=== PATIENT | female | born 1965 | race African-American/Black ===

== ENCOUNTER 2017-11-07 06:55 | Day surgery (SDC) | payer OTHER ==
[2017-10-20 15:39] VITALS: BMI 36.0
[2017-11-07] MEDS ORDERED: DEXAMETHASONE SOD PHOSPHATE/PF 10 MG/ML SDV ONE (09:51)
[2017-11-07] MEDS ORDERED: MIDAZOLAM HCL 2 MG/2 ML SINGLE DOSE VIAL ONE (09:52)
[2017-11-07] MEDS ORDERED: ROPIVACAINE HCL 0.5% 30ML VIAL ONE (09:52)
--- NOTE | 2017-11-07 09:59 | HP ---
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 Since the injury she has tried physical therapy and an injection into the joint. She has pain mostly over the front of her shoulder with movement, reaching behind her back and elevating her arm. To relieve her pain she takes oxycodone daily. No numbness or tingling. Since seeing her PMD for clearance she has been feeling ok. No CP/SOB or fevers. History Source: Patient Limitations to Obtaining History: No Limitations - Past Medical History SEXUAL HEALTH PHYSICIAN: No: TIA Cardiovascular: Yes: Deep Vein Thrombosis (? of a clot(2 years ago) to right upper thigh after trauma, was treated with two weeks of AC), HTN Gastrointestinal: No: Constipation, Gastritis, GERD Hepatobiliary: No: Hepatitis B Renal/: No: Renal Failure, Hematuria ...LMP Comment: 6 months ago - Past Surgical History Past Surgical History: Yes: Cholecystectomy Additional Past Surgical History: bunionectomy b/l - Smoking History Smoking history: Former smoker Have you smoked in the past 12 months: No If you are a former smoker, when did you quit?: 15 y ago - Alcohol/Substance Use Hx Alcohol Use: Yes (social) Home Medications - Allergies Allergies/Adverse Reactions: Allergies Allergy/AdvReac Type Severity Reaction Status Date / Time latex Allergy Rash Verified 10/20/17 15:43 codeine AdvReac Itching Verified 10/20/17 15:43 - Home Medications Home Medications: Ambulatory Orders Cyclobenzaprine HCl [Flexeril 10 mg] 10 mg PO DAILY 10/20/17 Diphenhydramine HCl [Benadryl -] 25 mg PO DAILY 10/20/17 Hydrocodone/Acetaminophen [Hydrocodone-Acetamin 7.5-300] 1 each PO DAILY Review of Systems - Review of Systems Constitutional: denies: Chills, Fever Neck: denies: Decreased ROM, Pain on Movement Cardiovascular: denies: Chest Pain, Edema, Palpitations Respiratory: denies: Cough, SOB Gastrointestinal: denies: Abdominal Pain, Constipation Genitourinary: denies: Burning, Dysuria Musculoskeletal: reports: Back Pain (and sciatica to both LE b/l(intermittent) occasional tingling to LE), Decreased ROM (to the left shoulder as per HPI), Extremity Pain (left shoulder pain) Neurological: reports: Weakness (left arm). denies: Seizure Hematology/Lymphatic: denies: Easily Bruised, Excessive Bleeding Physical Examination Vital Signs: Vital Signs Temperature 98.1 F 11/07/17 07:27 Pulse Rate 84 11/07/17 07:27 Respiratory Rate 18 11/07/17 07:27 Blood Pressure 120/80 11/07/17 07:27 O2 Sat by Pulse Oximetry (%) 100 11/07/17 07:27 Constitutional: Yes: Well Nourished, Calm HENT: Yes: WNL, Atraumatic, Normocephalic Neck: Yes: WNL, Supple, Trachea Midline Cardiovascular: Yes: WNL, Regular Rate and Rhythm Respiratory: Yes: WNL, Regular, CTA Bilaterally Gastrointestinal: Yes: WNL, Normal Bowel Sounds, Soft Extremities: No: Calf Tenderness, Deformity Edema: No Peripheral Pulses WNL: Yes Peripheral Pulses: Left Doralis Pedis: 2+, Right Dorsalis Pedis: 2+ Neurological: Yes: WNL, Alert, Oriented ...Motor Strength: LUE (LUE-4/5 with arm extension/flexion elicits anterior shoulder pain), LLE, RUE, RLE Psychiatric: Yes: WNL, Alert, Oriented Labs: Laboratory Tests 11/07/17 07:15 Urine HCG, Qual Negative Imaging - Results Other: Report Reviewed (nuclear stress test 09/26/2017 EF 70% with normal mycardial perfusion) Assessment/Plan A/P: 52 yo female with left shoulder pain/rotator cuff tear Plan for left shoulder open repair today She remains npo DVT ppx with SCDs/early ambulation Pt seen for medical clearance by her PMD-cleared as low risk for her surgical procedure. Stress test negative D/w Dr. Hardin
[2017-11-07] MEDS ORDERED: PROPOFOL 20 ML ONE ×9 (10:23→13:00)
[2017-11-07] MEDS ORDERED: BENZOIN/ALOE VERA/STORAX/TOLU 58 ML BOTTLE ONE (13:24)
--- NOTE | 2017-11-07 13:43 | OP ---
Operative Note - Note: Operative Date: 11/07/17 Pre-Operative Diagnosis: Left shoulder impingement syndrome. Left rotator cuff tendinopathy Operation: Left shoulder open: 1. Neer decompression. 2. Basilio procedure. 3. Rotator cuff repair Post-Operative Diagnosis: Same as Pre-op Surgeon: Shaheen Hardin Small Products I Assembler: Ayah Sylvester Anesthesiologist/DIABETES SPECIALIST: Oleg Romero Anesthesia: MAC (+ Regional) Specimens Removed: Left distal clavicle & inferior acromion Estimated Blood Loss (mls): 75 Fluid Volume Replaced (mls): 1,000 Operative Report Dictated: Yes
[2017-11-07] MEDS ORDERED: ONDANSETRON 4 MG/2 ML VIAL ONE (13:56)
[2017-11-07] MEDS ORDERED: PROMETHAZINE HCL 25 MG/1 ML VIAL IVPUSH PRN (13:58)
[2017-11-07] MEDS ORDERED: ACETAMINOPHEN 1000 MG/100 ML VIAL (NON FORMULARY) IVPB ONE (13:58)
[2017-11-07] MEDS ORDERED: ONDANSETRON 4 MG/2 ML VIAL IVPUSH PRN (13:58)
[2017-11-07] MEDS ORDERED: LACTATED RINGERS SOLUTION 1,000 ML IV SCH (14:00)
[2017-11-07] MEDS ORDERED: ACETAMINOPHEN INJECTION 100 ML IVPB ONE (14:35)
[2017-11-07 15:32] VITALS: TEMP 98.3
--- NOTE | 2017-11-07 15:56 | SURG ---
Surgery [facility] Nursery Transplanter Note [facility] Nursery Transplanter: Ayah Sylvester PA-C Date of Service: 11/07/17 Diagnosis: Left shoulder impingement syndrome. Left rotator cuff tendinopathy Left shoulder open: 1. Neer decompression. 2. Basilio procedure. 3. Rotator cuff repair Procedure: Left shoulder open: 1. Neer decompression. 2. Basilio procedure. 3. Rotator cuff repair I was present for the entirety of the operative procedure. For further detail, please refer to operative report. Visit type - Case Type Case Type: Scheduled Admission - Emergency Emergency Visit: No - New patient This patient is new to me today: Yes Date on this admission: 11/07/17
[2017-11-07 15:57] VITALS: BP 110/68; PULSE 87
[2017-11-08] MEDS ORDERED: CYCLOBENZAPRINE HCL 10 MG TABLET (FP) PO SCH (10:00)
--- NOTE | 2017-11-18 13:43 | PATH ---
Surgical Pathology Report Patient Name: BETO TALBERT [facility]. Rec. #: [id number] /Age/Gender: 1965 (Age: 52) / F Account: [id number] Location: [facility] AMBULATORY Taken: 11/07/2017 Received: 11/07/2017 Reported: 11/18/2017 Physicians: Shaheen Hardin M.D. Specimen(s) Received LEFT DISTAL CLAVICLE Clinical History Left shoulder impingement syndrome Final Diagnosis DISTAL CLAVICLE, LEFT, EXCISION: PORTIONS OF CARTILAGE-CAPPED BONE WITH NO PATHOLOGIC FINDINGS. Electronically Signed Alicia Purcell M.D. Gross Description Received in formalin labeled "left distal clavicle," is a 4.3 x 3.0 x 1.1 cm aggregate of dee, irregular to fragmented portions of bone. Paralegal Specialist sections are submitted in one cassette, following decalcification. /11/10/201711/10/2017
--- NOTE | 2017-11-24 07:46 | OP ---
DATE OF OPERATION: 11/07/2017 SURGEON: Shaheen Hardin MD INSERT MOLDING OPERATOR: PALMER March PREOPERATIVE DIAGNOSES: 1. Left shoulder impingement syndrome. 2. Left rotator cuff tendinopathy. POSTOPERATIVE DIAGNOSES: 1. Left shoulder impingement syndrome. 2. Left rotator cuff tendinopathy. 3. Partial-thickness tear, left rotator cuff. SURGICAL PROCEDURE: Left shoulder open: 1. Neer decompression. 2. Basilio procedure. 3. Rotator cuff repair. ANESTHESIA: Interscalene block and sedation. POSITION: Supine. INCISION: Anterior. ESTIMATED BLOOD LOSS: 75 mL. INTRAVENOUS FLUID ADMINISTERED: Crystalloid 1 L. SPECIMENS: Left distal clavicle and inferior acromion. COMPLICATIONS: None. DRAINS: None. URINE OUTPUT: None. BACTERIOLOGY: None. TRANSFUSIONS: None. CLOSURE: Vicryl No. 1 and 2-0 with 3-0 Biosyn. HISTORY OF PRESENT ILLNESS: The patient is a 52-year-old female who is indicated for a left shoulder open Neer decompression with Basilio procedure and possible left rotator cuff repair in order to facilitate improved motion and mobilization of her left upper extremity. The patient was identified in the holding area by her arm band. Long conversation was held with the patient regarding the risks, benefits , and alternatives of the above-named procedure. Risks include but are not limited to : Pain, bleeding, infection, damage to surrounding structures (including nerves, blood vessels, skin, ligaments, tendons, and bone), wound complications, need for further surgery, blood clots, myocardial infarction, pulmonary embolism, anesthesia complications, compartment syndrome, limb loss, limb loss of function, and . Benefits as mentioned above. Alternatives include no surgery. All questions were answered. The patient understood and agreed to the procedure. All questions were answered to patient as well as to her family. Informed consent was obtained, witnessed, and verified. The patient's correct operative limb -- the left upper extremity -- was marked, and the anesthesia team had administered a left interscalene nerve block. The patient was then taken to the operating room after being seen by the anesthesia and nursing staff. PROCEDURE: The patient was brought into the operating room, placed on the OR table and secured with a safety strap. Consent and the operative site were again verified with the patient and Anesthesia and nursing staff. Anesthesia was then administered without complications, including IV antibiotics. Timeout was done, led by me, the attending surgeon. Patient was positioned with all bony prominences well padded , and the lollipop body pad was positioned to prevent the patient from falling off the left side of the table. This well-padded lollipop was placed against the lateral aspect of her left thoracic cage. The operative site was then prepped and draped in standard sterile fashion. Timeout was then done and the case began. An incision was carried out in line with the middle of the coracoid process up and over the acromioclavicular joint. Subcutaneous dissection was carried with electrocautery down to the level of the distal clavicle. With the distal clavicle exposed, sharp Hohmanns were used around the inferior aspects of the anterior and posterior surfaces of the distal clavicle so as to elevate it. A 15-blade was used to walk along the distal clavicle until falling into the acromioclavicular joint. At that point we marked 1 cm of distal clavicle to be excised. An oscillating saw was used to perform a distal clavicular osteotomy. A bevelled angular cut was made so as to avoid leaving a sharp inferior corner to impinge on the rotator cuff below. The excision arthroplasty of the distal clavicle was completed and excised from its capsule using a 15-blade. Hemostasis was assured using a combination of electrocautery and bipolar cautery. The wounds were copiously irrigated throughout the case using normal saline solution. Next, the anterior fibers of the deltoid were gently elevated, revealing the coracoacromial ligament below. This was incised longitudinally using a fresh 15-blade. The coracoacromial ligament was fully released using Metzenbaum scissors. After the CA ligament was fully decompressed, attention was then turned to the acromion. The AC joint was neatly dissected so as to expose the distal acromion. Next, 50% of the undersurface of the acromion was cut utilizing the oscillating saw parallel to the surface of the acromion. A straight 1/2-inch osteotome was used to complete the cut and to free the excised segment of bone. During this part of the case, because there was virtually no subacromial space between the inferior surface of the acromion and the superior aspect of the humeral head, an iatrogenic fracture of the acromion was produced. There was no significant displacement of the acromion. The inferior acromioplasty osteotomy fragment was then removed using a rongeur with a 15-blade to release any soft tissue attachments. Then the wounds were copiously irrigated using normal saline solution, and hemostasis was assured using electrocautery and bipolar cautery. Next, with finger palpation, an entire finger could be delivered into the subacromial space, and bursal adhesions were gently released using manual finger debridement. The shoulder was then taken through a full range of motion where an anterolateral tear of the rotator cuff was fully visualized. This was a full- thickness tear involving the rotator cuff tendon. Three No. 1 Vicryl sutures were used in simple interrupted fashion to repair the rotator cuff derangement. Again the wounds were copiously irrigated. At this point in time the acromioclavicular joint capsule was closed primarily using No. 1 Vicryl sutures. This capsular closure reduced the fracture of the acromion into satisfactory position as could be determined by a combination of direct visualization and manual finger palpation. The remaining wounds were closed primarily using No. 1 and 2-0 Vicryl sutures, and a 3-0 Biosyn suture was used in intracuticular fashion for a final skin closure. Sterile compressive dressing was applied. The sponge and needle counts were correct at the end of the case, and I, the attending surgeon, was present and scrubbed throughout the case. Patient was then transferred to a hospital stretcher and to the recovery room in stable condition, having tolerated the procedure well. A sling was applied at the end of the case. MD YAMILEX Powell/[id number] MTDD
== END 2017-11-07 16:10 | disposition home or self-care (01) ==
LOC: FASU 06:55
PROVIDERS: ATTEND Orthopaedic Surgery Adult Reconstructive Orthopaedic Surgery
PROC: 0LB20ZZ Excision of Left Shoulder Tendon, Open Approach (ICD-10-PCS; 2017-11-07)
PROC: 0PBB0ZZ Excision of Left Clavicle, Open Approach (ICD-10-PCS; principal; 2017-11-07 12:04)
DX: M75.42 Impingement syndrome of left shoulder (principal); M75.112 Incomplete rotator cuff tear or rupture of left shoulder, not specified as traumatic
CPT/HCPCS: 84703; 88304-TC; 88311-TC; 94760

== ENCOUNTER 2018-05-29 05:58 | Day surgery (SDC) | payer OTHER ==
[2018-05-19 14:51] VITALS: BMI 39.2
[2018-05-29] MEDS ORDERED: diphenhydrAMINE HCL 25 MG CAPSULE (FP) PO PRN (07:59)
--- NOTE | 2018-05-29 08:01 | OP ---
Operative Note - Note: Operative Date: 05/29/18 Pre-Operative Diagnosis: Left shoulder arthrofibrosis Operation: Left shoulder BALJIT Post-Operative Diagnosis: Same as Pre-op Surgeon: Shaheen Hardin Orthophotography Technician: Ruben Hardin Anesthesiologist/CEMENT MASON MAINTENANCE: Christa Aguilar Anesthesia: General Estimated Blood Loss (mls): 0 Fluid Volume Replaced (mls): 100 Operative Report Dictated: Yes
[2018-05-29] MEDS ORDERED: oxyCODONE HCL 5 MG TABLET PO PRN (08:25)
[2018-05-29] MEDS ORDERED: ONDANSETRON 4 MG/2 ML VIAL IVPUSH PRN (08:25)
[2018-05-29] MEDS ORDERED: LACTATED RINGERS SOLUTION 1,000 ML IV SCH (08:30)
[2018-05-29 08:56] VITALS: TEMP 97.3
[2018-05-29] MEDS ORDERED: oxyCODONE HCL 5 MG TABLET ONE (09:00)
[2018-05-29] MEDS ORDERED: diphenhydrAMINE HCL 25 MG CAPSULE (FP) PO ONE (09:00)
[2018-05-29 10:06] VITALS: BP 108/68; PULSE 73
--- NOTE | 2018-05-29 10:52 | OP ---
DATE OF OPERATION: 05/29/2018 SURGEON: Ruben Hardin MD ANESTHESIA: General. PREOPERATIVE DIAGNOSIS: Arthrofibrosis, left shoulder. POSTOPERATIVE DIAGNOSIS: Arthrofibrosis, left shoulder. OPERATION PERFORMED: Manipulation, left shoulder, under anesthesia. OPERATION IN DETAIL: Time-out was called. Under general anesthesia, the left shoulder was premanipulation abducted to only 60 to 70 degrees, forward flexion 0 to 90, internal rotation 0 to 90, external rotation 0 to 5. Under general anesthesia, a gentle manipulation of the left shoulder performed by placing a hand behind the glenohumeral articulation and abducting slowly. Very mild degree of audible tearing was heard. Once this occurred at around about 100 degrees of abduction, the shoulder manipulated clearly right up to easily getting the hand behind the head, internal rotation 90 degrees and external rotation 60 degrees. Toradol was given. Plan for early return to physical therapy. MD YAMILEX Tompkins/[id number]
== END 2018-05-29 09:40 | disposition home or self-care (01) ==
LOC: FASU 05:58
PROVIDERS: ATTEND Orthopaedic Surgery Orthopaedic Surgery of the Spine
PROC: 0RSKXZZ Reposition Left Shoulder Joint, External Approach (ICD-10-PCS; principal; 2018-05-29 07:55)
DX: M24.612 Ankylosis, left shoulder (principal)
CPT/HCPCS: 84703; 94760

== ENCOUNTER 2018-10-20 06:08 | Inpatient (IN) | payer OTHER ==
[2018-10-19 13:07] VITALS: BMI 40.3
[2018-10-20] MEDS ORDERED: BUPIVACAINE HCL/PF 0.5% (5MG/ML) 10 ML VIAL ONE (07:39)
[2018-10-20] MEDS ORDERED: DEXAMETHASONE SOD PHOSPHATE 4 MG/1 ML VIAL ONE (07:43)
[2018-10-20] MEDS ORDERED: MIDAZOLAM HCL 2 MG/2 ML SINGLE DOSE VIAL ONE ×3 (07:43→07:58)
[2018-10-20] MEDS ORDERED: ceFAZolin SODIUM 1 GM VIAL ONE (07:43)
[2018-10-20] MEDS ORDERED: SODIUM CHLORIDE 0.9% P/F 10 ML VIAL IJ ONE (07:43)
[2018-10-20] MEDS ORDERED: LIDOCAINE HCL/PF 2% SDV 5ML VIAL ONE (07:43)
[2018-10-20] MEDS ORDERED: KETAMINE HCL 200 MG/20 ML VIAL ONE (07:44)
[2018-10-20] MEDS ORDERED: PROPOFOL 20 ML ONE (07:44)
[2018-10-20] MEDS ORDERED: LACTATED RINGERS SOLUTION 1,000 ML IV SCH (07:45)
[2018-10-20] MEDS ORDERED: ROCURONIUM BROMIDE 50 MG/5 ML VIAL ONE (07:46)
[2018-10-20] MEDS ORDERED: BUPIVACAINE HCL/PF 0.25% (2.5MG/ML) 10 ML VIAL ONE ×2 (07:57)
[2018-10-20] MEDS ORDERED: DEXMEDETOMIDINE HCL 200 MCG/2 ML IVPB ONE (08:01)
--- NOTE | 2018-10-20 08:35 | HP ---
Admitting History and Physical - Admission Chief Complaint: Morbid obesity History Source: Patient Limitations to Obtaining History: No Limitations - Past Medical History Cardiovascular: Yes: Deep Vein Thrombosis (? of a clot(2 years ago) to right upper thigh after trauma, was treated with two weeks of AC), HTN ...LMP Comment: once a year - Past Surgical History Past Surgical History: Yes: Cholecystectomy - Advance Directives Advance Directives: Yes: Health Care Proxy - Smoking History Smoking history: Former smoker Have you smoked in the past 12 months: No If you are a former smoker, when did you quit?: 20yrs ago - Alcohol/Substance Use Hx Alcohol Use: Yes (social) Home Medications - Allergies Allergies/Adverse Reactions: Allergies Allergy/AdvReac Type Severity Reaction Status Date / Time latex Allergy Rash Verified 10/20/18 07:36 codeine AdvReac Itching Verified 10/20/18 07:36 - Home Medications Home Medications: Ambulatory Orders Oxycodone HCl/Acetaminophen [Percocet 10-325 mg Tablet] 1 each PO Q8H PRN Diphenhydramine [Benadryl -] 50 mg PO PRN PRN 10/19/18 Family Disease History - Family Disease History Family History: Denies Review of Systems - Review of Systems Constitutional: denies: Chills, Fever HENT: reports: No Symptoms Neck: reports: No Symptoms Cardiovascular: reports: No Symptoms Respiratory: reports: No Symptoms Gastrointestinal: reports: No Symptoms Neurological: reports: No Symptoms Physical Examination Vital Signs: Vital Signs Temperature 98.1 F 10/20/18 07:35 Pulse Rate 78 10/20/18 07:35 Respiratory Rate 20 10/20/18 07:35 Blood Pressure 106/71 10/20/18 07:35 O2 Sat by Pulse Oximetry (%) 99 10/20/18 07:31 Constitutional: Yes: Calm Neck: Yes: WNL Cardiovascular: Yes: WNL Respiratory: Yes: Regular Gastrointestinal: Yes: Soft, Abdomen, Obese Neurological: Yes: Alert, Oriented Problem List - Problems (1) Morbid obesity due to excess calories Code(s): E66.01 - MORBID (SEVERE) OBESITY DUE TO EXCESS CALORIES (2) BMI 40.0-44.9, adult Code(s): Z68.41 - BODY MASS INDEX (BMI) 40.0-44.9, ADULT Assessment/Plan Laparoscopic possible open vertical sleeve gastrectomy possible liver biopsy, EGD
[2018-10-20] MEDS ORDERED: ceFAZolin SODIUM 1 GM VIAL IVPB ONE (08:45)
[2018-10-20] MEDS ORDERED: HEPARIN NA (PORCINE) 5,000 UNITS/ML 1ML VIAL ONE (08:48)
[2018-10-20] MEDS ORDERED: BUPIVACAINE HCL/PF 0.25% (2.5MG/ML) 10 ML VIAL IJ ONE ×2 (08:56→10:29)
[2018-10-20] MEDS ORDERED: KETOROLAC TROMETHAMINE 30 MG/1 ML VIAL ONE (09:40)
[2018-10-20] MEDS ORDERED: GLYCOPYRROLATE 0.2 MG/1 ML VIAL ONE (09:40)
[2018-10-20] MEDS ORDERED: NEOSTIGMINE METHYLSULFATE 0.5 MG/ML - 10 ML MDV ONE (09:44)
[2018-10-20] MEDS ORDERED: ONDANSETRON 4 MG/2 ML VIAL ONE ×2 (11:19→16:07)
[2018-10-20] MEDS ORDERED: ACETAMINOPHEN INJECTION 100 ML IVPB ONE ×2 (11:19→18:06)
[2018-10-20] MEDS ORDERED: METOCLOPRAMIDE HCL INJECTION 10 MG/2 ML VIAL ONE ×2 (11:19→17:32)
[2018-10-20] MEDS: METOCLOPRAMIDE HCL INJECTION 10 MG/2 ML VIAL IVPUSH SCH ×3 (11:28→22:46)
[2018-10-20] MEDS ORDERED: morphine SULFATE 4 MG/ML VIAL IVPUSH PRN (11:30)
--- NOTE | 2018-10-20 11:47 | OP ---
Operative Note - Note: Operative Date: 10/20/18 Pre-Operative Diagnosis: Morbid obesity Operation: Laparoscopic vertical sleeve gastrectomy, liver biopsy, EGD Post-Operative Diagnosis: Same as Pre-op (as well as hepatomegaly) Surgeon: Rell Tiwari Slip Box Changer: Alicia Glasgow Anesthesia: General Specimens Removed: Greater curvature of stomach. Liver biopsy Estimated Blood Loss (mls): 30 Drains & Tubes with Location: 36 Fr bougie Operative Report Dictated: Yes
--- NOTE | 2018-10-20 11:49 | OP ---
Operative Note - Note: Operative Date: 10/20/18 Pre-Operative Diagnosis: morbid obesity Operation: laparoscopic gastric sleeve. liver biopsy. EGD Post-Operative Diagnosis: Same as Pre-op Surgeon: Rell Tiwari Pattern Illustrator: Alicia Glasgow Anesthesiologist/CONVEYOR MAINTENANCE MECHANIC: Tono Aquino Anesthesia: General, Local (tap block) Estimated Blood Loss (mls): 30 Fluid Volume Replaced (mls): 1,300 Operative Report Dictated: Yes
--- NOTE | 2018-10-20 11:56 | SURG ---
Surgery Video Arcade Manager Note Video Arcade Manager: Alicia Glasgow PA-C Date of Service: 10/20/18 Diagnosis: Morbid obesity Procedure: Laparoscopic vertical sleeve gastrectomy, liver biopsy, EGD I was present for the entirety of the operative procedure. For further detail, please refer to operative report. Visit type - Case Type Case Type: Scheduled - Emergency Emergency Visit: No - New patient This patient is new to me today: Yes Date on this admission: 10/20/18
[2018-10-20] MEDS: ACETAMINOPHEN 1000 MG/100 ML VIAL (NON FORMULARY) IVPB SCH ×3 (12:05→22:45)
--- NOTE | 2018-10-20 12:09 | SPEC ---
DATE OF OPERATION: 10/20/2018 SURGEON: Rell Tiwari MD NETWORKING TECHNICIAN: PALMER Long PREOPERATIVE DIAGNOSES: 1. Morbid obesity. 2. Body mass index 40.4. POSTOPERATIVE DIAGNOSES: 1. Morbid obesity. 2. Body mass index 40.4. 3. Hepatomegaly. PROCEDURE: 1. Laparoscopic vertical sleeve gastrectomy. 2. Laparoscopic wedge liver biopsy. 3. Esophagogastroduodenoscopy/upper endoscopy. SPECIMENS: 1. Greater curvature of the stomach. 2. Liver biopsy. ESTIMATED BLOOD LOSS: 30 mL. DRAIN: None. ANESTHESIA: GET. BOUGIE SIZE: 36 Chinese. REASON FOR PROCEDURE: This is a 53-year-old female who was seen in the office for weight loss options. After describing different options, she decided to proceed with a laparoscopic, possible open, vertical sleeve gastrectomy, possible liver biopsy, and upper endoscopy. RISKS AND BENEFITS: After describing the different options for weight loss management, the patient decided to proceed with a laparoscopic, possible open vertical sleeve gastrectomy. The patient was seen by the respective subspecialties and cleared for surgery. The risks and benefits of the procedure were explained. These included bleeding, infection, hernia, RI, DVT, PE, injury to surrounding structures including the liver, colon, bowel, spleen, esophagus, vessel injury, nerve injury, weight regain, gastric leak, staple line leak, sleeve leak, obstruction, vitamin deficiency, hair loss and as some of the possible complications. The patient understood and signed informed consent. DESCRIPTION OF PROCEDURE: The patient was placed supine on the operating room table. The patient underwent general endotracheal intubation. The arms were brought out at 90 degrees and secured. A footboard was placed, and the legs were secured laterally with padding. The abdomen was prepped and draped in the usual sterile fashion. A timeout was performed. An incision was made in the left upper quadrant and a Veress needle inserted. Pneumoperitoneum was established. Subsequently, the Veress needle was removed and a 5-mm trocar was placed under direct visualization with the laparoscope. The laparoscopic camera was then inserted and inspection of the abdominal cavity was performed. An incision was then made in the supraumbilical area and a 15-mm trocar was placed under direct visualization. A 5-mm trocar was then placed in the right upper quadrant and a 5-mm trocar was placed below the left subcostal margin. A stab wound was made in the subxiphoid area and a Celsa clamp inserted and removed to dilate the tract. A Kai liver retractor was inserted. The post was secured at the bedside by the nursing staff. The patient was placed in steep reverse Trendelenburg position and the Kai liver retractor was used to secure the liver towards the anterior abdominal wall. The pylorus was identified and 6 cm proximal to it, the lesser sac was entered using the LigaSure device. All lateral attachments to the greater curvature of the stomach, including the short gastric vessels, were ligated using the LigaSure device toward the gastrosplenic and gastrophrenic ligaments. Once this was done in its entirety, it was confirmed that all tubes within the nasal or oropharyngeal cavity, including a temperature probe, was removed by Anesthesia. The bougie was then inserted by Anesthesia. Transection of the stomach was then begun staying adjacent to the bougie but away from the angularis. Transection of the stomach was performed near the portion of the stomach where the lesser sac was entered. Two laparoscopic Endo-BECKY black erika were used at this location. Laparoscopic Endo BECKY purple staple loads were then used for the remainder of the transection until the greater curvature of the stomach was fully transected. This was done staying close to the bougie. Care was taken to stay away from the angle of His cephalad. The staple line was then inspected. Hemostasis was identified. A leak test was then performed. It was clamped distally to the staple line. Irrigation solution was placed in the left upper quadrant and air was insufflated by Anesthesia into the sleeve. No leaks were identified. No obstruction was identified. This was done through the entirety of the staple line. In addition, an upper endoscopy was performed. The endoscope was placed into the patients mouth, and the entirety of the esophagus, GE junction, gastric pouch and staple line were inspected. No obstruction or leak was noted. The stomach was suctioned, and the endoscope removed fully intact. At this point, the irrigation solution was suctioned and again, hemostasis was noted. A wedge liver biopsy was then performed. The left lobe of the liver was identified, and a portion of the edge was grasped. Using electrocautery, a wedge of the liver was excised. This was removed and sent off the field as specimen. Hemostasis at the site of the wedge liver biopsy was attained using electrocautery. The 15-mm supraumbilical trocar was then removed and the greater curvature specimen removed from the site using a sponge stick higgins. The specimen was inspected and a Veress needle inserted. The specimen insufflated adequately, and no leak was identified. The staple line was noted to be intact. A Soy-Tommie device was then used to close the fascia with a 0 Vicryl suture at the site. Again, hemostasis was noted. The Kai liver retractor was then removed under direct visualization. Pneumoperitoneum was desufflated, and the fascial sutures were secured. Hemostasis was noted at all incision sites, and Marcaine was injected at all incision sites. All incision sites were closed using 4-0 Biosyn. Sterile dressings were applied. The patient tolerated the procedure well and was transferred to the recovery room in stable condition. The patient was transferred to telemetry for further monitoring. On closure of the supraumbilical incision, because of some subcutaneous oozing and to decrease the risk of wound dehiscence, the wound was closed in a horizontal mattress fashion with a 0 silk suture x3. The patient tolerated the procedure well and was transferred to recovery room in stable condition. Mk [id number]
[2018-10-20 12:26] LABS: HEMATOCRIT 35.2 % (32.4-45.2); MCH 30.9 pg (25.7-33.7); MEAN CELL VOLUME 90.7 fl (80-96); MEAN PLT VOLUME 8.3 fl (7.5-11.1); PLATELET COUNT 392 K/MM3 (134-434); RBC 3.89 M/mm3 (3.60-5.2); RDW 13.8 % (11.6-15.6); WHITE BLOOD COUNT 16.7 K/mm3 (4.0-10.0)
[2018-10-20] MEDS: ONDANSETRON 4 MG/2 ML VIAL IVPUSH SCH ×4 (12:30→22:40)
[2018-10-20 12:48] LABS: ALBUMIN 3.7 g/dl (3.4-5.0); ALK PHOS 96 U/L (45-117); ANION GAP 3 MMOL/L (8-16); BILIRUBIN,TOTAL 0.8 mg/dL (0.2-1); BLOOD UREA NITROGEN 14 mg/dL (7-18); CALCIUM 8.4 mg/dL (8.5-10.1); CHLORIDE 104 mmol/L (98-107); CO2 30 mmol/L (21-32); CREATININE 0.9 mg/dL (0.55-1.3); GLUCOSE,RANDOM 188 mg/dL (74-106); POTASSIUM 3.5 mmol/L (3.5-5.1); SGOT/AST 52 U/L (15-37); SGPT/ALT 56 U/L (13-61); SODIUM 137 mmol/L (136-145); TOT PROT 7.3 g/dl (6.4-8.2)
[2018-10-20] MEDS ORDERED: PROMETHAZINE HCL 25 MG/1 ML VIAL ONE (13:56)
[2018-10-20] MEDS ORDERED: PROMETHAZINE HCL 25 MG/1 ML VIAL IVPUSH ONE (14:00)
[2018-10-20] MEDS: SODIUM CHLORIDE 1,000 ML IV SCH ×2 (15:00→22:48)
[2018-10-20] MEDS ORDERED: HYDROmorphone HCl 2 MG/ML VIAL ONE (15:40)
[2018-10-20] MEDS: HYDROmorphone HCl 2 MG/ML VIAL IVPB PRN ×2 (15:40→21:03)
[2018-10-20] MEDS: LACTATED RINGERS SOLUTION 1,000 ML IV SCH (20:50)
[2018-10-20] MEDS: FAMOTIDINE 20 MG/50 ML IVPB 20 MG/50 ML MG IVPB SCH (21:04)
[2018-10-20] MEDS: ENOXAPARIN NA (PORCINE) 40 MG/0.4 ML DISP.SYRIN SQ SCH (21:04)
[2018-10-21] MEDS: HYDROmorphone HCl 2 MG/ML VIAL IVPB PRN ×2 (02:53→06:31)
[2018-10-21] MEDS: ONDANSETRON 4 MG/2 ML VIAL IVPUSH SCH ×4 (02:54→14:38)
[2018-10-21] MEDS: ACETAMINOPHEN 1000 MG/100 ML VIAL (NON FORMULARY) IVPB SCH (05:07)
[2018-10-21] MEDS: METOCLOPRAMIDE HCL INJECTION 10 MG/2 ML VIAL IVPUSH SCH ×2 (05:07→11:58)
[2018-10-21] MEDS: SODIUM CHLORIDE 1,000 ML IV SCH (06:27)
[2018-10-21 07:12] LABS: HEMOGLOBIN 11.9 GM/dL (10.7-15.3); MCH 32.1 pg (25.7-33.7); MEAN CELL VOLUME 91.5 fl (80-96); MEAN PLT VOLUME 8.6 fl (7.5-11.1); PLATELET COUNT 337 K/MM3 (134-434); RBC 3.72 M/mm3 (3.60-5.2); RDW 14.2 % (11.6-15.6); WHITE BLOOD COUNT 7.4 K/mm3 (4.0-10.0)
[2018-10-21 07:43] LABS: ALBUMIN 3.2 g/dl (3.4-5.0); ALK PHOS 84 U/L (45-117); ANION GAP 4 MMOL/L (8-16); BILIRUBIN,TOTAL 0.9 mg/dL (0.2-1); BLOOD UREA NITROGEN 6 mg/dL (7-18); CALCIUM 8.3 mg/dL (8.5-10.1); CHLORIDE 105 mmol/L (98-107); CO2 27 mmol/L (21-32); CREATININE 0.6 mg/dL (0.55-1.3); GLUCOSE,RANDOM 95 mg/dL (74-106); POTASSIUM 4.4 mmol/L (3.5-5.1); SGOT/AST 42 U/L (15-37); SGPT/ALT 49 U/L (13-61); SODIUM 136 mmol/L (136-145); TOT PROT 6.6 g/dl (6.4-8.2)
--- NOTE | 2018-10-21 09:11 | PN ---
Addendum entered and electronically signed by Alicia Glasgow PA 10/21/18 11 :05: UGI: no evidence of leak. OK to advance to BS1D Original Note: Progress Note (short form) - Note Progress Note: surgery POD#1 laparoscopic vertical sleeve patient doing well but had issues overnight voiding. Patient states she felt lost of pressure after voiding and was found to have 500cc of retained urine on bladder scan. The patient had a straight cath but continued to have retention which required a hemphill. She states shes never had a problem with retention in the past although she has a history of a bladder sling about 15 years. Her pain is controlled and she has been OOB ambulating. She denies any CP, SOB, Vomiting fever or chills. Of note: Patient states she developed 2 DVTs and a PE after a having arthroscopic shoulder surgery in October of 2017 but she never had a hematology evaluation. She was managed by per PCP, Dr. Broderick in the [place] with Xeralto for 3 months which she stopped in January. I have encouraged her to seek a formal hematology consult as an outpatient. Vital Signs Temp 98.7 F 10/21/18 06:00 Pulse 92 H 10/21/18 06:00 Resp 18 10/21/18 06:00 BP 133/86 10/21/18 06:00 Pulse Ox 98 10/20/18 22:00 Intake & Output 10/20/18 10/20/18 10/21/18 11:59 23:59 11:59 Intake Total 3500 1475 1260 Output Total 30 1775 475 Balance 3470 -300 785 Intake: IV 2000 1275 1050 Normal Saline - 1,000 ml 675 1050 @ 150 mls/hr IV ASDIR JERICHO Rx#:[id number] IVPB 200 210 Other 1500 Output: Urine 1775 475 Hemphill 475 Straight Cath 475 Void 300 Estimated Blood Loss 30 Other: Voiding Method Toilet # Unmeasured Voids Void 2 CBC, BMP 10/21/18 06:30 10/21/18 06:30 PE: A&Ox3, NAD Unlabored resp on RA ABD: Obese, ND, and mildly TTP throughout appropriate to status, incisions dressings c/d/i with surrounding tissue intact and no active d/c LE compatments soft, supple and non-tender to palpation with +2 DP pulse. <Alicia Glasgow - Last Filed: 10/21/18 09:18> - Note Progress Note: Agree POD 1 Needed catheterization for retained urine Awaiting to see if this recurs If it does, will lace consult for Urology No other events reported overnight AVSS Labs WNL UGI: no leak/obstruction Continue Lovenox Recommend discussing with her Primary Care Physician/Hematology regarding history of PE on prior Orthopedic surgery As H/H is stable can start any treatment needed tomorrow If no further trouble voiding, can be discharged today <Rell Tiwari - Last Filed: 10/21/18 12:44> Problem List - Problems (1) S/P laparoscopic sleeve gastrectomy Assessment/Plan: POD #1 lap sleeve with urinary retention overnight. 1) f/u UGI this morning ans start BS1D if no leak 2) d/c hemphill, TOV with post void bladder scan, if any retention will consult urology 3) OOB as tolerated 4) encourage IS 5) Continue DVT prophylaxis with lovenox 6) surgery to follow. Evaluation and plan discussed with Dr Tiwari Code(s): Z98.84 - BARIATRIC SURGERY STATUS <Alicia Glasgow - Last Filed: 10/21/18 09:18> - Problems (1) Morbid obesity due to excess calories Code(s): E66.01 - MORBID (SEVERE) OBESITY DUE TO EXCESS CALORIES (2) BMI 40.0-44.9, adult Code(s): Z68.41 - BODY MASS INDEX (BMI) 40.0-44.9, ADULT <Rell Tiwari - Last Filed: 10/21/18 12:44>
[2018-10-21] MEDS ORDERED: oxyCODONE HCL 5 MG TABLET PO PRN (09:49)
[2018-10-21] MEDS ORDERED: SODIUM CHLORIDE 1,000 ML IV SCH (10:00)
[2018-10-21] MEDS: FAMOTIDINE 20 MG/50 ML IVPB 20 MG/50 ML MG IVPB SCH (10:01)
[2018-10-21] MEDS: ENOXAPARIN NA (PORCINE) 40 MG/0.4 ML DISP.SYRIN SQ SCH (10:01)
[2018-10-21] MEDS: LACTATED RINGERS SOLUTION 1,000 ML IV SCH (14:40)
[2018-10-21 14:46] VITALS: BP 145/77; PULSE 88; TEMP 98.6
--- NOTE | 2018-10-21 16:07 | DS ---
Physical Exam: SUBJECTIVE: Patient seen and examined at bedside later in the afternoon. POD #1 Laparoscopic vertical sleeve. She has been voiding without limitation after having her hemphill removed and tolerating her BS1D. She is ambulating without assistance an pain is controlled. OBJECTIVE: Vital Signs Temperature 98.6 F 10/21/18 14:00 Pulse Rate 88 10/21/18 14:00 Respiratory Rate 20 10/21/18 14:00 Blood Pressure 145/77 10/21/18 14:00 O2 Sat by Pulse Oximetry (%) 95 10/21/18 10:08 PHYSICAL EXAM GENERAL: The patient is awake, alert, and fully oriented, in no acute distress. HEAD: Normal with no signs of trauma. EYES: sclera anicteric, conjunctiva clear. NECK: Trachea midline, full range of motion, supple. LUNGS: no auditory wheezes, no accessory muscle use, unlabored resp on RA HEART: Regular rate and rhythm, S1, S2 without murmur, rub or gallop. ABDOMEN: Obese, ND, and mildly TTP throughout appropriate to status, incisions dressings c/d/i with surrounding tissue intact and no active d/c LE compatments soft, supple and non-tender to palpation with +2 DP pulse. NEUROLOGICAL: Cranial nerves II through XII grossly intact. Normal speech, gait not observed. PSYCH: Normal mood, normal affect. SKIN: Warm, dry, normal turgor, no rashes or lesions noted. LABS CBC,CMP WBC 7.4 K/mm3 (4.0-10.0) 10/21/18 06:30 RBC 3.72 M/mm3 (3.60-5.2) 10/21/18 06:30 Hgb 11.9 GM/dL (10.7-15.3) 10/21/18 06:30 Hct 34.0 % (32.4-45.2) 10/21/18 06:30 MCV 91.5 fl (80-96) 10/21/18 06:30 MCH 32.1 pg (25.7-33.7) 10/21/18 06:30 MCHC 35.0 g/dl (32.0-36.0) 10/21/18 06:30 RDW 14.2 % (11.6-15.6) 10/21/18 06:30 Plt Count 337 K/MM3 (134-434) 10/21/18 06:30 MPV 8.6 fl (7.5-11.1) 10/21/18 06:30 Sodium 136 mmol/L (136-145) 10/21/18 06:30 Potassium 4.4 mmol/L (3.5-5.1) 10/21/18 06:30 Chloride 105 mmol/L (98-107) 10/21/18 06:30 Carbon Dioxide 27 mmol/L (21-32) 10/21/18 06:30 Anion Gap 4 MMOL/L (8-16) L 10/21/18 06:30 BUN 6 mg/dL (7-18) L 10/21/18 06:30 Creatinine 0.6 mg/dL (0.55-1.3) 10/21/18 06:30 Creat Clearance w eGFR > 60 (>60) 10/21/18 06:30 Random Glucose 95 mg/dL (74-106) 10/21/18 06:30 Calcium 8.3 mg/dL (8.5-10.1) L 10/21/18 06:30 Total Bilirubin 0.9 mg/dL (0.2-1) 10/21/18 06:30 AST 42 U/L (15-37) H 10/21/18 06:30 ALT 49 U/L (13-61) 10/21/18 06:30 Alkaline Phosphatase 84 U/L (45-117) 10/21/18 06:30 Total Protein 6.6 g/dl (6.4-8.2) 10/21/18 06:30 Albumin 3.2 g/dl (3.4-5.0) L 10/21/18 06:30 Serum , Qual Negative 10/20/18 06:23 HOSPITAL COURSE: Date of Admission:10/20/18 The patient was admitted to the Med-Surg Unit after an elective bariatric surgery. Now, s/p laparoscopic vertical sleeve gastrectomy. The day of surgery, the patient ambulated the hallways with assistance. Narcotic and non-narcotic pain management control was achieved with oral and IV pain control. The patient was monitored with remote tele/continuous pulse ox. POD#0 patient experienced urinary retention and required a straight cath and indwelling hemphill overnight. POD#1 the hemphill was removed and patient voided with post void bladder scan revealing no significant retention. Upper Gi series was obtained the following morning and noted to be within normal limits, diet was advanced and patient tolerated her BS1D. Kori-operative IV ABX were administered in addition to GI prophylaxis. DVT prophylaxis was achieved with SCDs and early ambulation. [place] [employer] prior to escibe. The discharge instructions and an oral pain management plan were reviewed with the patient. All questions answered. Above plan discussed with Dr. Tiwari and agreed. Date of Discharge: 10/21/18 Minutes to complete discharge: 25 Visit type - Case Type Case Type: Scheduled - Emergency Emergency Visit: No - New patient This patient is new to me today: Yes Date on this admission: 10/21/18
--- NOTE | 2018-10-21 17:37 | PATH ---
Surgical Pathology Report Patient Name: BETO TALBERT [facility]. Rec. #: [id number] /Age/Gender: 1965 (Age: 53) / F Account: [id number] Location: 4 SO PEDS/ADOL Taken: 10/20/2018 Received: 10/20/2018 Reported: 10/21/2018 Physicians: Rell Tiwari M.D. Specimen(s) Received A: GREATER CURVATURE STOMACH B: LIVER BIOPSY Clinical History Morbid obesity Final Diagnosis A. GREATER CURVATURE STOMACH, LAPAROSCOPIC VERTICAL SLEEVE GASTRECTOMY: SEGMENT OF STOMACH SHOWING CHRONIC GASTRITIS. IMMUNOSTAINING IS NEGATIVE FOR H. PYLORI ORGANISMS. NEGATIVE FOR INTESTINAL METAPLASIA. B. LIVER, BIOPSY: LIVER TISSUE WITH STEATOSIS (~40%), DIFFUSE. NO HISTOLOGIC EVIDENCE OF STEATOHEPATITIS. NO INCREASE IN FIBROSIS (TRICHROME STAIN) OR IRON (IRON STAIN) DEPOSITION. Comment: subcapsular liver tissue. Electronically Signed Sachin Rodríguez M.D. Gross Description A. Received in formalin, labeled "greater curvature of stomach," is a 77 gram, 18.0 x 2.8 x 2.5 cm. portion of stomach with a stapled margin of resection. The serosa is dee-prater with minimal attached fat. The mucosa is dee-pink with normal folds. No mucosal masses are identified. Sonography Technologist sections are submitted in one cassette. B. Received in formalin labeled "liver biopsy," is a 1.9 x 1.4 x 0.5 cm dee, irregular portion of soft tissue, consistent with a liver biopsy. The specimen is bisected and entirely submitted in one cassette. /10/20/2018 saudi10/20/2018
== END 2018-10-21 17:23 | disposition home or self-care (01) | DRG 403 ==
LOC: JSAMEDAYSX 06:08 → J4S 18:26
PROVIDERS: ADMIT Surgery; ATTEND Surgery
PROC: 0DB64Z3 Excision of Stomach, Percutaneous Endoscopic Approach, Vertical (ICD-10-PCS; principal; 2018-10-20 08:30)
PROC: 0FB24ZX Excision of Left Lobe Liver, Percutaneous Endoscopic Approach, Diagnostic (ICD-10-PCS; 2018-10-20 08:30)
PROC: 0DJ08ZZ Inspection of Upper Intestinal Tract, Via Natural or Artificial Opening Endoscopic (ICD-10-PCS; 2018-10-20 08:30)
DX: E66.01 Morbid (severe) obesity due to excess calories (principal); Z68.41 Body mass index [BMI] 40.0-44.9, adult; R16.0 Hepatomegaly, not elsewhere classified; Z87.891 Personal history of nicotine dependence
CPT/HCPCS: 36415; 74241-TC-FY; 80053; 84703; 85027; 86850; 86900; 86901; 88305-TC; 94010; 94760; J0131; J1644; J7030